=== PATIENT | male | born 1960 | race Hispanic/Latino ===

== ENCOUNTER → 2020-02-16 | Emergency (ER) | payer MEDICARE, MEDICAID ==
[~2020-02-16] MED LIST: Iopamidol 370 76% 100 ML VIAL ONE
[2020-02-16 11:08] LABS: Bilirubin Negative (Negative); Blood, Urine Negative (Negative); Clarity Clear (Clear); Glucose, Urine (Dipstick) Negative (Negative); Ketone, Urine Negative (Negative); Leukocyte Negative (Negative); Nitrite Negative (Negative); Protein, Urine (Dipstick) Negative (Neg-Trace); Specific Gravity, Urine 1.025 (1.005-1.030); pH, Urine 5.5 (5.0-9.0)
[2020-02-16 11:13] LABS: #Basophils 0.1 thou/uL (0.0-0.2); #Eosinphils 0.1 thou/uL (0.0-0.7); #Lymphocytes 1.7 thou/uL (1.20-3.40); #Monocytes 0.5 thou/uL (0.11-0.59); #Neutrophils 3.7 thou/uL (1.40-6.50); %Basophils 1.7 % (0.0-1.0); %Eosinophils 1.5 % (0.0-10.0); %Lymphocytes 27.9 % (21.0-51.0); %Monocytes 7.4 % (0.0-10.0); %Neutrophils 61.5 % (42.0-75.0); Hemoglobin 15.1 g/dL (14.0-18.0); Mean Corpuscular HGB CONC 31.9 g/dL (32.0-36.0); Mean Corpuscular Hemoglobin 28.3 pg (27.0-31.0); Mean Corpuscular Volume 88.7 fL (78.0-98.0); Mean Platelet Volume 9.8 fL (7.4-10.4); Platelet Count 213 thou/uL (130-400); RBC Distribution Width 12.4 % (11.5-14.5); Red Blood Cell (RBC) Count 5.35 mill/uL (4.70-6.10); White Blood Cell (WBC) Count 6.1 thou/uL (4.8-10.8)
[2020-02-16 11:24] LABS: ALT (SGPT) 35 U/L (8-55); AST (SGOT) 23 U/L (5-34); Alkaline Phosphatase 103 U/L (40-110); Anion Gap 16 mmol/L (10-20); BUN (Urea Nitrogen) 13 mg/dL (8.4-25.7); Bilirubin, Total 0.9 mg/dL (0.2-1.2); Calc. Creatinine Clearance 0 mL/min (70-130); Calcium 9.8 mg/dL (7.8-10.44); Carbon Dioxide 24 mmol/L (22-29); Chloride 105 mmol/L (98-107); Estimated GFR-MDRD 74; Globulin 3.3 g/dL (2.4-3.5); Glucose 177 mg/dL (70-105); Lipase 34 U/L (8-78); Potassium 3.9 mmol/L (3.5-5.1); Protein, Total 8.3 g/dL (6.0-8.3); Sodium 141 mmol/L (136-145)
--- NOTE | 2020-02-16 18:18 | CT ---
CT ABDOMEN AND PELVIS WITH CONTRAST: 02/16/[address] of the abdomen and pelvis was performed. Focused images of the lumbar spine were also obtai leelee as a part of the exam. The lung bases are clear. The liver, spleen, pancreas, gallbladder, adrenal glands, kidneys and abdom inal aorta showed no acute findings. There was no sign of mass, laceration, or hematoma in any major organ. The bowel shows no dilation or wall thickening. There is no inflammatory change around bowel. The marek endix appears normal. No free air or free fluid is seen. CT of the pelvis shows no pelvic masses, fluid collections, or inflammatory changes. The patient's bony pelvis appears intact. No fractures were seen there or in the hips. The SI joints are symmetrical and the symphysis shows no widening or off-set. The CT included the lumbar spine. No acute fracture or area of bony destruction was seen. There is, h owever, a degenerated disc at L5-S1. A sequestered disc fragment has migrated superiorly into the lef t neural foramina at the L5 level that would potentially impinge upon the left L5 nerve root. Additio manuel, there is a small central fragment protruding just to the left of midline at the L5-S1 level. T here is severe bilateral foraminal narrowing at this level. No lumbar fractures were appreciated. No bony destructive lesions were seen in the lumbar spine or pelvis. IMPRESSION: 1. No acute findings in the abdomen or pelvis. 2. Not mentioned above, but some of the images suggest there could be some very tiny gallstones in the gallbladder, but the finding is not definite. Ultrasound would be more sensitive. 3. Sequestered disc fragment in the left L5 neural foramen that potentially would affect the lef t L5 nerve root. 4. Severe bilateral foraminal narrowing at L5-S1. The disc at this level is severely degenerated . Findings discussed with Dr. Reyes at 12:02 on 02/16/2020. POS: HOME
== END ==
LOC: BURERS 10:26
DX: M51.36 Other intervertebral disc degeneration, lumbar region (principal); E11.9 Type 2 diabetes mellitus without complications; I10 Essential (primary) hypertension; E78.00 Pure hypercholesterolemia, unspecified
CPT/HCPCS: 74177; 80053; 81003; 83690; 85025; Q9967